=== PATIENT | female | born 1985 | race African-American/Black ===

== ENCOUNTER 2020-08-13 11:30 | Emergency (ER) | payer OTHER ==
[2020-08-13 11:35] VITALS: BMI 36.1
[2020-08-13] MEDS ORDERED: IBUPROFEN 400 MG TABLET (FP) PO ONE ×2 (13:30→13:38)
[2020-08-13] MEDS ORDERED: LIDOCAINE 5% TOPICAL PATCH TP ONE (13:42)
[2020-08-13] MEDS ORDERED: LIDOCAINE 5% TOPICAL PATCH ONE (13:48)
[2020-08-13 14:04] VITALS: BP 121/68; PULSE 83; TEMP 98
[2020-08-13] MEDS ORDERED: LIDOCAINE PATCH REMOVAL MC ONE (22:00)
== END 2020-08-13 14:05 | disposition home or self-care (01) ==
LOC: JER 11:30
DX: M54.10 Radiculopathy, site unspecified (principal)
CPT/HCPCS: 99284-25

== ENCOUNTER 2020-12-22 23:47 | Emergency (ER) | payer OTHER ==
[2020-12-23 00:51] VITALS: BP 112/75; PULSE 65; TEMP 98.3; BMI 35.6
== END 2020-12-23 02:38 | disposition home or self-care (01) ==
LOC: JER 23:47
DX: G89.29 Other chronic pain (principal)
CPT/HCPCS: 99283-25